=== PATIENT | female | born 1945 | race Caucasian/White ===

== ENCOUNTER 2016-11-23 23:44 | Inpatient (IN) | payer MEDICARE, BC ==
[~2016-11-23 23:44] MED LIST: BACLOFEN10 M1 PO; CARDIZEM CD180 M1 PO; COUMADIN3 M1 PO; COUMADIN4 M1 PO; COUMADIN4 MG PO; CYANOCOBAL1000 MCG/3 SC; FISH OIL 1,0001 CAP PO; FISH OIL 1,2001 EAC5 PO; FLUOXETINE HCL40 MG PO; LORAZEPAM0.5 MG PO; LOVENOX60 MG/0.1 SC; MULTIVITAMIN1 TAB PO; MULTIVITAMINS1 EAC6 PO; NORCO 5-325 TA1 EACH PO; OMEPRAZOLE20 M2 PO; OMEPRAZOLE20 M4 PO; PROTONIX40 M2 PO; RITALIN20 MG PO; SANCTURA20 MG PO; SEROQUEL25 M2 PO; SEROQUEL25 MG PO; SERTRALINE HCL100 MG PO; SIMVASTATIN20 MG PO; SINGULAIR10 M1 PO; TENORMIN25 M1 PO; TRIMETHOPRIM100 M1 PO; ULTRAM50 M1 PO; VITAMIN B-1000 MCG/ IJ; VITAMIN B-121000 MC1 PO; VITAMIN B12500 MCG PO; VITAMIN D31000 UNI4 PO; ZOCOR20 M1 PO; ZOLOFT100 M1 PO; ZYRTEC1010 PO
[2016-11-24 00:22] LABS: BASO % 0.3 % (0-2); EOS % 0.3 % (0-7); HCT-HEMATOCRIT 41.6 % (34.0-49.0); HGB-HEMOGLOBIN 13.8 gm/dl (12.0-15.5); IMMATURE GRANULOCYTES ABSOLUTE 0.04 tho/cmm (0-0.03); IMMATURE GRANULOCYTES PERCENT 0.3 % (0-0.3); LYMPH % 5.2 % (20-45); LYMPH ABSOLUTE COUNT 0.7 tho/cmm (0.8-4.5); MCH (MEAN CORPUSCULAR HGB) 30.5 pg (28.0-32.0); MCHC MEAN CORPUSCULAR HGB CONC 33.2 % (32.0-36.0); MEAN PLATELET VOLUME 10.4 cmc (9.4-12.4); MONO % 11.3 % (0-12); MONOCYTE ABSOLUTE COUNT 1.6 tho/cmm (0.0-1.2); NEUTROPHIL ABSOLUTE COUNT 11.4 tho/cmm (1.6-8.0); NEUTROPHIL-AUTOMATED 11.4 tho/cmm (1.6-8.0); NEUTROPHILS % 82.6 % (40-80); PLATELET COUNT 206 tho/cmm (150-450); RED BLOOD COUNT 4.52 mil/cmm (4.00-5.20); RED CELL DISTRIBUTION WIDTH 14.8 % (12.4-16.4); WHITE BLOOD COUNT 13.8 tho/cmm (4.0-10.0)
[2016-11-24 00:36] LABS: PROTHROMBIN TIME 11.5 SECONDS (9.0-13.6)
[2016-11-24 00:41] LABS: ALB/GLOB RATIO 0.9 (0.8-2.0); ALBUMIN 3.1 g/dl (3.5-5.0); ALKALINE PHOSPHATASE 69 U/L (33-138); ALT/SGPT 20 U/L (12-78); BILIRUBIN,TOTAL 0.3 mg/dl (0-1.5); BLOOD UREA NITROGEN 25 mg/dl (6-24); CALCIUM 8.3 mg/dl (8.5-10.5); CHLORIDE 105 mmol/l (96-110); SODIUM 137 mmol/L (135-145)
[2016-11-24 00:42] LABS: AST/SGOT 20 U/L (10-40)
[2016-11-24 00:45] LABS: CARBON DIOXIDE-VENOUS 21 mmol/L (21-33); CREATININE 0.85 mg/dl (0.67-1.17); GLUCOSE 150 mg/dl (65-120); eGFR VALUE FOR BLACK 79 mL/Min
[2016-11-24 00:47] LABS: ANION GAP 15 mmol/L (0-20); POTASSIUM 4.2 mmol/L (3.7-5.1)
[2016-11-24 06:26] LABS: PROTHROMBIN TIME 11.9 SECONDS (9.0-13.6)
[2016-11-25 05:44] LABS: BASO % 0.7 % (0-2); BASO ABSOLUTE COUNT 0.1 tho/cmm (0.0-0.2); EOS % 1.6 % (0-7); EOSINOPHIL ABSOLUTE COUNT 0.1 tho/cmm (0.0-0.7); HCT-HEMATOCRIT 38.9 % (34.0-49.0); HGB-HEMOGLOBIN 12.7 gm/dl (12.0-15.5); IMMATURE GRANULOCYTES ABSOLUTE 0.01 tho/cmm (0-0.03); IMMATURE GRANULOCYTES PERCENT 0.1 % (0-0.3); LYMPH % 16.5 % (20-45); LYMPH ABSOLUTE COUNT 1.3 tho/cmm (0.8-4.5); MCH (MEAN CORPUSCULAR HGB) 30.5 pg (28.0-32.0); MCHC MEAN CORPUSCULAR HGB CONC 32.6 % (32.0-36.0); MCV (MEAN CELL VOLUME) 93.3 fl (82.0-96.0); MEAN PLATELET VOLUME 10.2 cmc (9.4-12.4); MONO % 11.7 % (0-12); MONOCYTE ABSOLUTE COUNT 0.9 tho/cmm (0.0-1.2); NEUTROPHIL ABSOLUTE COUNT 5.3 tho/cmm (1.6-8.0); NEUTROPHIL-AUTOMATED 5.3 tho/cmm (1.6-8.0); NEUTROPHILS % 69.4 % (40-80); PLATELET COUNT 177 tho/cmm (150-450); RED BLOOD COUNT 4.17 mil/cmm (4.00-5.20); RED CELL DISTRIBUTION WIDTH 15.2 % (12.4-16.4); WHITE BLOOD COUNT 7.7 tho/cmm (4.0-10.0)
[2016-11-25 05:45] LABS: PROTHROMBIN TIME 11.5 SECONDS (9.0-13.6)
[2016-11-26 06:27] LABS: INR 1.2 INR (0.9-1.1); PROTHROMBIN TIME 13.7 SECONDS (9.0-13.6)
[2016-11-26 15:17] LABS: PLATELET COUNT 183 tho/cmm (150-450)
== END 2016-11-26 18:00 | DRG 69 ==
LOC: EDMED 23:44 → EMR2 11-24 01:53 → 5EB 11-24 03:00
PROVIDERS: Emergency Medicine; Internal Medicine; Registered Nurse; ADMIT Hospitalist
DX: G45.9 Transient cerebral ischemic attack, unspecified (principal); I27.2 Other secondary pulmonary hypertension; I48.0 Paroxysmal atrial fibrillation; R73.9 Hyperglycemia, unspecified; I25.10 Atherosclerotic heart disease of native coronary artery without angina pectoris; Z72.0 Tobacco use
CPT/HCPCS: A9520; A9577; C8929; G8978-GP-CJ; G8979-GP-CI; J1650; J1940; J7030